=== PATIENT | female | born 1980 | race Caucasian/White ===

== ENCOUNTER → 2017-01-17 | Outpatient (REF) | payer OTHER ==
[~2017-01-17] MED LIST: ACET50TA PO; COLA100C3 PO; IBUP80TA PO; INSUN SC; INSUNSD SC; INSUR SC; INSURSD SC; LABE20TAB PO; NPH INSULIN SUBQ; PROC60TA PO; REGULAR INSULIN SUBQ; TRAN200T PO; VITAPRTA PO
== END ==
LOC: M SFHCLERA 19:13
PROVIDERS: ATTEND Nurse Practitioner Family
DX: J35.1 Hypertrophy of tonsils (principal)